=== PATIENT | female | born 1990 | race Caucasian/White ===

== ENCOUNTER 2017-01-03 13:43 | Emergency (ER) | payer OTHER ==
[~2017-01-03] VITALS: Ht 160 cm; Wt 71.1 kg
[2017-01-03 13:44] VITALS: Ht 160 cm; Wt 71.1 kg
--- NOTE | 2017-01-03 15:27 | ERD ---
ER Documentation Chief Complaint Chief Complaint VAG BLEED X 2 WEEKS , UNK IF PREG HPI This is a 26-year-old female presenting to the emergency department for vaginal bleeding 2 weeks. Patient states her last menstrual period was December 20, 2016 and lasted 4 days. Patient states since then she has had light pink spotting. Patient has had mild intermittent pelvic cramping. No severe pelvic or abdominal pain. No vomiting or diarrhea. No fevers or chills. ROS All systems reviewed and are negative except as per history of present illness. Medications Home Meds No Active Prescriptions or Reported Meds Allergies Allergies: Coded Allergies: No Known Drug Allergies (Verified Allergy, Unknown, 09/17/15) PMhx/Soc History of Surgery: No Anesthesia Reaction: No Hx Neurological Disorder: No Hx Respiratory Disorders: No Hx Cardiac Disorders: No Hx Psychiatric Problems: No Hx Miscellaneous Medical Probl: No Hx Alcohol Use: Yes (occassional) Hx Substance Use: No Hx Tobacco Use: No Physical Exam Vitals Vital Signs Date Time Temp Pulse Resp B/P Pulse Ox O2 Delivery O2 Flow Rate FiO2 01/03/17 13:44 97.9 74 18 131/79 98 Physical Exam Const: No acute distress, alert Head: Atraumatic Eyes: Normal Conjunctiva ENT: Normal External Ears, Nose and Mouth. Neck: Full range of motion..~ No meningismus. Resp: Clear to auscultation bilaterally Cardio: Regular rate and rhythm, no murmurs Abd: Soft, non tender, non distended. Normal bowel sounds Skin: No petechiae or rashes Back: No midline or flank tenderness Ext: No cyanosis, or edema Neur: Awake and alert Psych: Normal Mood and Affect Result Diagram: 01/03/17 1520 Results 24 hrs Laboratory Tests Test 01/03/17 15:20 White Blood Count 8.810^3/ul Red Blood Count 4.5710^6/ul Hemoglobin 14.5g/dl Hematocrit 43.8% Mean Corpuscular Volume 95.8fl Mean Corpuscular Hemoglobin 31.7pg Mean Corpuscular Hemoglobin Concent 33.1g/dl Red Cell Distribution Width 12.6% Platelet Count 99818^3/UL Mean Platelet Volume 10.3fl Neutrophils % 66.3% Lymphocytes % 20.7% Monocytes % 10.5% Eosinophils % 1.0% Basophils % 1.0% Nucleated Red Blood Cells % 0.0/100WBC Neutrophils # 5.910^3/ul Lymphocytes # 1.810^3/ul Monocytes # 0.910^3/ul Eosinophils # 0.110^3/ul Basophils # 0.110^3/ul Nucleated Red Blood Cells # 0.010^3/ul Procedures/MDM MDM: This is a 26-year-old female presenting to emergency department for vaginal bleeding 2 weeks. Patient states her last menstrual period November and lasted 4 days. Patient states she stopped taking her oral contraceptive pill 3 weeks ago and has been spotting since her last period. Denies pelvic pain. No dysuria or hematuria. CBC shows no significant anemia or infection. Urine is negative. Awaiting urine dip results. Upon reassessment of patient, patient appears to have eloped. Departure Diagnosis: Primary Impression: Vaginal bleeding Condition: Stable ANTHONY LOTT NP Jan 03, 2017 15:27 ANTHONY LOTT NP Jan 03, 2017 15:27
== END 2017-01-03 16:00 | disposition left against medical advice (07) ==
LOC: FTE 13:43
DX: N93.8 Other specified abnormal uterine and vaginal bleeding (principal)
CPT/HCPCS: 36415; 85025; Z7502; 99283